=== PATIENT | female | born 1960 | race Caucasian/White ===

== ENCOUNTER 2016-12-29 07:22 | Day surgery (SDC) | payer BC, OTHER ==
[~2016-12-29 07:22] MED LIST: RINGERS SOLUTION,LACTATED 1,000 ML IV PRN
--- OUTSIDE RECORDS SUMMARY | 2016-12-29 07:26 | XMS REPORT | Continuity of Care Document ---
:1960 Author Organization [facility] ([facility]) Address [address] [place] [address] Phone [phone] Care Team Providers Name Role Phone [phone], Need To Check Primary Care Provider Unavailable Source Comments This disclosure is being made pursuant to the Care Everywhere program, applicable federal and state laws, and may not contain all informaitonavailable regarding this patient.[facility] ([facility]) Active Allergies and Adverse Reactions Not on File Current Medications Prescription Sig. Disp. Refills Start Date End Date Status LANSOPRAZOLE (PREVACID PO) Take by mouth. Active PNV Take by mouth. Active NO18/IRON,CARB/FA/UBI/DHA (PREQUE 10 PO) Active Problems Not on file Social History Tobacco Use Types Packs/Day Years Used Date Never Assessed Last Filed Vital Signs Vital Sign Reading Time Taken Blood Pressure 156/95 04/28/2010 12:00 PM CDT Pulse 86 04/28/2010 12:00 PM CDT Temperature 36.5 C (97.7 F) 04/28/2010 12:00 PM CDT Respiratory Rate - - Height 1.51 m (4' 11.45") 04/28/2010 12:00 PM CDT Weight 72.9 kg (160 lb 11.5 oz) 04/28/2010 12:00 PM CDT Body Mass Index 31.97 04/28/2010 12:00 PM CDT Oxygen Saturation - - Plan of Care Health Maintenance Due Date Last Done Comments HCV Screening 1960 Hepatitis B Vaccine (1 of 3 - Primary Series) 1960 Tdap Vaccine 1969 Lipid Disorder Screening 1976 MMR Vaccine 1976 Td Vaccine 1976 Pneumococcal Vaccine (1 of 3 - PCV13) 1977 Cervical Cancer Screening 1988 Mammogram 1998 Colonoscopy 04/10/2008 Influenza Vaccine: Seasonal (#1) 03/29/2016 Results from Last 3 Months Not on file
[2016-12-29] MEDS ORDERED: RINGERS SOLUTION,LACTATED 1,000 ML IV ONE (08:00)
[2016-12-29] MEDS ORDERED: PANTOPRAZOLE SODIUM 40 MG in NORMAL SALINE 100 ML IV ONE (09:08)
[2016-12-29] MEDS ORDERED: RINGERS SOLUTION,LACTATED 1,000 ML IV PRN (09:08)
[2016-12-29] MEDS ORDERED: PANTOPRAZOLE SODIUM 40 MG/100 ML PIGGYBACK IV ONE (09:43)
[2016-12-29 10:08] VITALS: BP 117/73
--- NOTE | 2016-12-29 13:53 | OR ---
Operative Report - Dictated Report Narrative: Operative Report Date of operation: 12/29/2016 Preoperative diagnosis: Anemia. GERD symptoms despite medication. History of colon polyps Postoperative diagnosis: Esophagitis. Hiatal hernia. Gastritis. Duodenitis ( pathology and CLOtest pending). Normal colonoscopy Operation: EGD with biopsies. Colonoscopy Surgeon: Dr Camarillo Anesthesia: KRISTA AUSTIN CRNA Indications for procedure: The patient is a 56-year-old female referred by Roland LANDEROS. The patient has anemia. The patient has GERD symptoms despite medication with history of esophagitis on EGD in 2010. She had a tubulovillous adenoma on colonoscopy in 2000 and a tubular adenoma on repeat exam in 2010. Findings: LA Grade B distal esophagitis. Hiatal hernia. Gastropathy. Duodenitis (pathology and CLOtest pending). Normal colonoscopy to the cecum Narrative of procedure: The patient was identified preoperatively, and prior to the administration of anesthetic a multidisciplinary timeout was observed EGD: With the patient in the recumbent position, a bite-block was placed, intravenous sedation was administered, and the patient's eyes covered with a towel. The flexible fiberoptic gastroscope was advanced into the posterior pharynx which appeared normal. The supraglottic larynx appeared normal. The cords appeared normal, moved well, and opposed in the midline. The scope was advanced under direct vision into the proximal esophagus which appeared normal. The esophagus appeared freely distensible with normal mucosa. The esophageal mucosa appeared normal down to the distal one third where linear esophageal erosions were noted. The GE junction appeared normally distensible. There was a moderate sliding hiatal hernia. The scope was advanced into the stomach proper which was insufflated with air. There was greer gastric erythema with friability and flecks of coffee ground material although no jose de jesus ulcerations or neoplastic lesions were appreciated. A retroflexed view of the gastric fundus clearly demonstrated a large hiatal hernia. The scope was redirected toward the pylorus. The pylorus appeared patent. The scope was advanced into the duodenal bulb which appeared erythematous and friable with no jose de jesus ulcers were apparent. The scope was advanced further to the horizontal portion of the duodenum which appeared normal, specifically the villous architecture appeared well preserved and clear bile was present. The scope was slowly withdrawn through the duodenal bulb with confirmation that no active ulcer was present. A inside account representative duodenal biopsy was obtained and submitted for pathology. The biopsy site was seen to be hemostatic. The scope was withdrawn into the stomach and inside account representative biopsies of gastric mucosa obtained for CLOtest and pathology. The biopsy sites were seen to be hemostatic. The insufflated air was removed from the stomach, the scope withdrawn to just above the GE junction and esophageal biopsies were obtained. The sites were seen to be hemostatic. The scope was withdrawn from the patient, and this portion of the procedure terminated. COLONOSCOPY: The patient was then placed in the left lateral position, and the perineum was inspected. There was no evidence of pilonidal disease or skin breakdown. The external appearance of the anus was normal. Sphincter tone was good. The flexible fiberoptic colonoscope was inserted into the rectum which was insufflated with air. The rectal mucosa and submucosal vascular pattern appeared normal, the prep was seen to be complete. The scope was advanced through the sigmoid colon, up the descending colon, and around the splenic flexure where the triangular haustral architecture of the transverse colon was seen. The scope was advanced across the transverse colon, around the hepatic flexure to the cecum, where the confluence of tenia and the ileocecal valve were identified. The mucosa at this level appeared normal. The scope was then slowly withdrawn in a circular fashion so that all aspects of colonic mucosa were inspected. The colon was relatively normal in course and caliber. The haustral architecture appeared well preserved throughout with no evidence of external compression. The mucosa and submucosal vascular pattern appeared normal, specifically there was no gross evidence to suggest colitis or inflammatory bowel disease and no AV malformations were seen. No jose de jesus diverticulosis was demonstrated. No polyps were encountered. The scope was gradually withdrawn to the level of the rectum. As much insufflated air as possible was removed. The scope was withdrawn from the patient and the procedure terminated. The patient tolerated the anesthetic and procedure well without complication and was transferred back to the ambulatory surgery area awake and in stable condition. The patient remained stable throughout a period of postoperative observation. She denied abdominal discomfort, was able to tolerate by mouth intake, and was up without assistance. I shared the operative findings with the patient and she was given copies of the photographs which appear in the medical record. She was discharged home with instructions not to engage in hazardous activity today , but may resume normal activity tomorrow, and advance diet as tolerated. She is to continue those medications as listed in the history and physical exam. I made arrangements to contact her with the biopsy reports and will make additional recommendations for treatment and follow-up based upon those results. Reviewed and electronically signed
== END 2016-12-29 07:23 | disposition home or self-care (01) ==
LOC: AMB 07:22
PROVIDERS: ATTEND Surgery
PROC: 0DB48ZX Excision of Esophagogastric Junction, Via Natural or Artificial Opening Endoscopic, Diagnostic (ICD-10-PCS; 2016-12-29)
PROC: 0DJD8ZZ Inspection of Lower Intestinal Tract, Via Natural or Artificial Opening Endoscopic (ICD-10-PCS; 2016-12-29)
PROC: 0DB98ZX Excision of Duodenum, Via Natural or Artificial Opening Endoscopic, Diagnostic (ICD-10-PCS; principal; 2016-12-29 08:20)
PROC: 0DB68ZX Excision of Stomach, Via Natural or Artificial Opening Endoscopic, Diagnostic (ICD-10-PCS; 2016-12-29 08:20)
DX: Z12.11 Encounter for screening for malignant neoplasm of colon (principal); K21.0 Gastro-esophageal reflux disease with esophagitis; K44.9 Diaphragmatic hernia without obstruction or gangrene; K29.80 Duodenitis without bleeding; K29.70 Gastritis, unspecified, without bleeding; I10 Essential (primary) hypertension; E03.9 Hypothyroidism, unspecified; D64.9 Anemia, unspecified; F32.9 Major depressive disorder, single episode, unspecified; E66.9 Obesity, unspecified; Z68.34 Body mass index [BMI] 34.0-34.9, adult; Z86.010 Personal history of colon polyps

== ENCOUNTER 2020-08-14 08:00 | Inpatient (IN) ==
[~2020-08-14 08:00] MED LIST changes: +MORPHINE SULFATE 15 MG TABLET.SA PO PRN; -RINGERS SOLUTION,LACTATED 1,000 ML IV PRN; +ROPIVACAINE HCL/PF 100 MG, EPINEPHrine 0.2 MG, KETOROLAC TROMETHAMINE 30 MG in NORMAL S... IJ PRN; +TRANEXAMIC ACID 1,000 MG in NORMAL SALINE 100 ML IV PRN; +ceFAZolin SODIUM 1 GM VIAL IV PRN
--- NOTE | 2020-08-14 09:04 | ANES ---
Anesthesia Pre Procedure Eval Vitals/Labs: Last Vital Signs Temp 37.2 C 08/14/20 08:24 Pulse 79 08/14/20 08:24 Resp 18 08/14/20 08:24 BP 133/91 H 08/14/20 08:24 Pulse Ox 95 08/14/20 08:24 HOME MEDICATIONS fluticasone propionate 50 mcg/actuation nasal spray,suspension 2 spray INTRANASAL DAILY #9.9 g 09/14/19 [Last Taken Unknown] celecoxib 200 mg capsule 200 mg PO DAILY #90 cap 01/01/20 [Last Taken Unknown] furosemide 40 mg tablet 40 mg PO .COMPLEX PRN #30 tab 02/27/20 [Last Taken Unknown] levothyroxine 50 mcg tablet 50 mcg PO DAILY #90 tab 03/19/20 [Last Taken Unknown] omeprazole 40 mg capsule,delayed release 40 mg PO DAILY #90 cap 03/19/20 [Last Taken Unknown] venlafaxine 75 mg capsule,extended release 24 hr 75 mg PO DAILY #90 cap 03/19/20 [Last Taken Unknown] meloxicam 15 mg tablet 15 mg PO DAILY PRN tab 05/13/20 [Last Taken Unknown] losartan 50 mg tablet 50 mg PO BID #180 tab 07/10/20 [Last Taken 08/14/20 06:00] tramadol 50 mg tablet 50 mg PO Q6H PRN #60 tab 07/16/20 [Last Taken Unknown] ibuprofen 800 mg tablet 800 mg PO Q6H PRN #120 tab MDD 4 07/29/20 [Last Taken Unknown] Zinc 50 mg PO DAILY 08/14/20 [Last Taken Unknown] Allergies/Adverse Reactions: Allergies Allergy/AdvReac Type Severity Reaction Status Date / Time propoxyphene napsylate Allergy Mild Vomiting Verified 08/14/20 08:28 [From Osmar] - Planned Procedure Planned Procedure: LT Arthroplasty Total Knee Medication List Reviewed:: Yes Allergies Verified: Yes Medical History (Last Reviewed 08/14/20 @ 08:52 by Paul Gabriel CRNA) Acquired hammer toe Onset Date: 07/13/12 Anemia Onset Date: Unknown Degenerative joint disease of knee Onset Date: 07/14/12 Depression Onset Date: Unknown Essential hypertension Onset Date: 10/12/17 GERD (gastroesophageal reflux disease) Onset Date: Unknown Hernia, hiatal Onset Date: 2000 Hip pain, bilateral Onset Date: Unknown Hypertension Onset Date: Unknown Hypothyroidism Onset Date: Unknown Medial meniscus tear Onset Date: [address] Hess Obesity Onset Date: Unknown Osteoarthritis Onset Date: Unknown Osteopenia Onset Date: Unknown Primary localized osteoarthritis Onset Date: 10/13/12 shoulder region Rotator cuff tear Onset Date: 2009 Right shoulder repaired then reruptured Rotator cuff tear arthropathy of right shoulder Onset Date: 07/14/12 chronic Shoulder pain Onset Date: Unknown Thumb pain Onset Date: Unknown Wrist fracture, left Onset Date: 07/27/19 Surgical History (Last Reviewed 08/14/20 @ 08:52 by Paul Gabriel CRNA) Cholecystectomy planned Onset Date: Unknown Delashmutt-open [id number] Hammertoe Onset Date: 07/11/12 surgery- Dr Rahman-Rt foot History of carpal tunnel release Onset Date: 1999 Dr. Ramírez-bilateral History of colonoscopy Onset Date: 12/29/16 Bagan-normal. History of colonoscopy Onset Date: 06/14/11 with biopsy- ' Yaz-tubulovillous adenoma.' John Paul-tubular adenoma. 01/06/01, 06/14/11 History of esophagogastroduodenoscopy (EGD) Onset Date: 12/29/16 ' Peasley-hiatal hernia, mod esophagitis, positive H.pylor. ' John Paul- mild chronic inflammation. '[id number]-aysyawle neg. chem. gastritis,chronic ulcer 12/16/00, 06/14/11,12/29/16 History of knee replacement Onset Date: 01/2015 right- Deshawn History of nasal septoplasty Onset Date: 12/25/09 Lakshmi History of repair of rotator cuff Onset Date: 02/05/10 Dr Wood-right shoulder History of total right hip replacement Onset Date: 09/2018 Dr. Hess History of tubal ligation Onset Date: 1991 History of total right knee replacement Onset Date: 08/14/18 Dr. Hess revision Family History (Last Reviewed 08/14/20 @ 08:52 by Paul Gabriel CRNA) Mother , age 79-COPD, CAD, hyperlipidemia, osteoarthritis. COPD (chronic obstructive pulmonary disease) Hyperlipemia CAD (coronary artery disease) Osteoarthritis Father , age 59, malignant lymphoma. DM, HTN Diabetes Hypertension Cancer malignant lymphoma Brother Diabetes - Family Anesthesia History Family History:: no untoward family reactions to anesthesia, no familial bleeding tendencies, no family history of clotting disorders, no family history of premature - Airway/Neck/Teeth Denture Type: Full upper Neck Exam: full range of motion Mallampatti Score: 1 Thyromental (T-M) distance: > 6 cm Mandibulo Hyoid distance: > 3 cm - Respiratory Respiratory Physical: lungs clear Smoking Status: Never smoker Sleep Apnea currently treated: No Sleep Apnea by current assessment: No - Cardiovascular Cardiac History: other - furosomide for hand swelling Tolerate Activity: Fair Heart Sounds: S1 & S2, Regular - Gastrointestinal NPO since: 2400 - Anesthesia Assessment and Plan ASA Class: PS, II Anesthesia Type Plan: Block - Adductor canal block for post op pain relief, Spinal
[2020-08-14] MEDS ORDERED: MIDAZOLAM HCL/PF 5 MG/ML VIAL ONE (09:06)
[2020-08-14] MEDS ORDERED: PROPOFOL VIAL IV ONE (09:06)
[2020-08-14] MEDS ORDERED: BUPIVACAINE HCL/EPINEPHRINE 50 ML VIAL ONE (09:06)
[2020-08-14] MEDS ORDERED: ONDANSETRON HCL/PF 2 MG/ML VIAL ONE (09:06)
[2020-08-14] MEDS: RINGER'S SOLUTION,LACTATED 1,000 ML IV PRN ×3 (09:18→11:41)
[2020-08-14] MEDS ORDERED: MAGNESIUM HYDROXIDE 30 ML UDC PO PRN (11:35)
[2020-08-14] MEDS ORDERED: DEXTROSE 5%-LACTATED RINGERS 1,000 ML IV PRN (11:35)
[2020-08-14] MEDS ORDERED: ACETAMINOPHEN 500 MG TABLET PO PRN (11:35)
[2020-08-14] MEDS ORDERED: MAG HYDROX/ALUMINUM HYD/SIMETH 30 ML UDC PO PRN (11:35)
[2020-08-14] MEDS ORDERED: diphenhydrAMINE HCL 50 MG/ML VIAL IV PRN (11:35)
[2020-08-14] MEDS ORDERED: MORPHINE SULFATE 2 MG/ML DISP.SYRIN IV PRN (11:35)
[2020-08-14] MEDS ORDERED: ZOLPIDEM TARTRATE 5 MG TABLET PO PRN (11:35)
--- NOTE | 2020-08-14 11:35 | OR ---
Operative Report - Dictated Report Narrative: Date: 08/14/2020 Preoperative diagnosis: Left knee degenerative joint disease. Postoperative diagnosis: Left knee degenerative joint disease. Procedure: Left total knee arthroplasty. Surgeon: Linden Irwin M.D. Leader Writer: Ghassan Trevino PA-C (provided and essential set of skilled, educated hands that assisted with transfer, positioning, prepping, draping, manipulation, retraction, placement of jigs, injection, insertion of implants, irrigation, closure wounds, and dressings all of which could not be performed by the available surgical crew) Anesthesia: Spinal with regional block and local periarticular joint injection. Complications: None Specimens: Bone. Estimated blood loss: Minimal. Tourniquet time: 90 Minutes at 325 millimeters of mercury. Retained implants: Depuy Attune size 4 narrow left lugged cemented posterior stabilized femoral component. Size 3 fixed-bearing cemented tibial platform. 4 by 8 millimeter posterior stabilized cross-linked tibial insert. 35 millimeter medialized patella button. Indications: Mrs. Chen is a 60-year-old female who has had longstanding left knee pain and arthrosis. This patient was followed in my clinic for period of time with significant complaints of left knee pain consistent with arthritic changes. She had failed conservative measures including, but not limited to, activity modification, passage of time, medications, and other conservative measures. Patient wished to proceed with surgical treatment. The risks, benefits, and alternatives were discussed in clinic. The risks of , blood clots, bleeding, infection, nerve/tendon blood vessel/ injury, malposition of components, intraoperative fracture, postoperative limited range of motion, persistent pain, failure of components, and need for additional procedures. Patient wished to proceed consent was obtained after answering all questions. Procedure: After marking the correct extremity on the floor, the patient was taken to the operating room. A timeout was performed. IV antibiotics consisting of Ancef were administered prior to the procedure. A regional followed by spinal anesthetic was induced by anesthesia, per my request, on the operative table with all bony prominences well-padded. Gilmore catheter was placed, and a bump was placed under the operative side buttock. SCDs and YEIMY hose were utilized on the nonoperative leg. A well-padded tourniquet was applied to the operative thigh. The operative leg was then pre-scrubbed with alcohol, prepped, and draped in a standard sterile fashion. After exsanguinating the extremity with an Esmarch bandage, the tourniquet was inflated. After marking out the anterior knee for standard incision centered over the patella, the skin was incised and dissected down to the joint retinaculum. The joint retinaculum was marked out as well as the horizontal axis of the patella, and a standard medial parapatellar arthrotomy was then made. The most proximal aspect of the quadriceps tendon and the patella tendon insertion were protected from release. A partial synovectomy was performed as well as a resection of the infrapatellar fat pad. The distal femoral fat pad proximal to the trochlea was also resected using cautery. The soft tissues were elevated off the medial aspect of the proximal tibia using a Tamez elevator ensuring that we did not transect the medial collateral ligament. Upon initial evaluation range of motion was approximately 0 degrees to 130 degrees of flexion. There were signs of advanced arthrosis in the medial, patellofemoral greater than lateral joint spaces. There were large marginal osteophytes which were removed with a rongeur. The knee was hyperflexed and the patella was tucked laterally. Protecting the surrounding soft tissues with Homans, an entry drill was placed down the femoral canal using Whitesides line for guidance into the entry point. The intramedullary femoral alignment paige was utilized in order to cut the distal femur in 5 degrees of valgus resecting 10 millimeters of bone. Next the distal femur was sized to a size 4. A posterior referencing guide was utilized to place the distal femoral cutting block in 3 degrees of external rotation. This was pinned into place. The rotation was confirmed both visually and based on anatomic landmarks. The 4 in 1 cutting jig of the appropriate size was utilized in order to make all bony cuts. The andrzej wing was used to ensure no notching. Retractors were utilized in order to protect surrounding soft tissues. This cut did not result in any excessive notching. We then cut the box centered over the distal femur. This allowed for resection of the anterior and posterior cruciate ligaments. I then turned my attention to the preparation of the tibia. Using an extra medullary tibial alignment paige, 3 millimeters of bone was resected off the medial articular surface. This was made perpendicular to the mechanical axis of the joint with the alignment paige centered over the ankle mortise. The alignment paige was checked and was noted to be parallel to the mec hanical axis, centered over the medial one third of the tibial tubercle, paralleling the anterior surface of the tibia. We then turned our attention to the remaining meniscus and soft tissues. These were removed while protecting the surrounding ligaments and soft tissues. The marginal osteophytes off the anterior, posterior, medial, lateral aspects of the femur and tibia were removed. The tibia was sized out to a size 3. Next the tibia was drilled and punched in an externally rotated position. Next the trial femur and a series of tibial inserts were utilized in order to allow for full extension and maximal flexion. It was found that a 8 millimeter insert gave the best range of motion and stability at multiple flexion points as well as at full extension there was less than 2 mm of gapping both medially and laterally. There is minimal anterior translation with the knee at 90 degrees of flexion and no signs of being able to dislocate the knee. The patella was then prepared. The initial thickness was 18 millimeters. This was reamed down to 11 millimeters parallel to the anterior surface of the patella. It was sized out to a size 35 medialized patella button. This was then drilled and trialed. Without any medial restraint the patella tracked appropriately and did not sublux or dislocate. At this point, it was felt these were the appropriate sized implants, and all trials were removed. The standard periarticular joint injection consisting of ropivacaine, Toradol, and epinephrine were injected into the periarticular joint tissues. The bony surfaces were thoroughly irrigated with a pulsatile-suction saline irrigation device. A bone plug from the prior resected anterior chamfer cut was placed into the drill hole at the distal femur. The bony surfaces were then dried in preparation for placement of the implants. The cement was vacuum mixed per the roll contour grinder's instructions. The cement was placed on the dry bony surfaces and posterior aspect of the implants. The implants were impacted into place, removing all extruded cement. At this point anesthesia administered tranexamic acid per protocol intravenously. The knee was placed in extension with axial loading with the trial insert while the cement cured. Once the cement cured, all remaining extruded cement was removed. The knee was placed through a range of motion with the trial insert to ensure appropriate range of motion and stability. Final range of motion was approximately 0 to 130 degrees. The knee was again thoroughly irrigated with pulsatile saline lavage. The final polyethylene insert was then impacted into place ensuring no retained soft tissues. The remaining periarticular joint injection was injected. A medium Hemovac drain was placed exiting superior laterally. The knee was then placed over a triangle and the arthrotomy was closed with interrupted #1 Vicryl after thoroughly irrigating the joint. The deep and subcutaneous tissues were closed with interrupted 0 and 3-0 Vicryl respectively. Skin was closed with a running subcutaneous 3-0 Monocryl and Prineo Dermabond dressing. 4 x 4's, Sof-Rol, and a full leg Thaddeus wrap were applied. All sponge, needle, blade, and instrument counts were correct prior to closing the wounds. Postoperative condition: The patient was awoken and transferred to the postanesthesia care unit in stable condition. Plan is to be admitted to the inpatient medical/surgical floor postoperatively for 24 hours of IV antibiotics, physical therapy, occupational therapy, and medical comanagement. Patient will be weightbearing as tolerated with range of motion as tolerated. DVT prophylaxis will be with SCDs, YEIMY hose, and pharmacological anticoagulation. Anticipated hospital stay is approximately 1-3 days.
[2020-08-14] MEDS ORDERED: FUROSEMIDE 40 MG TABLET PO PRN (11:38)
--- NOTE | 2020-08-14 11:56 | ANES ---
Anesthesia Procedure Note Procedure Note: ANESTHESIA PROCEDURE NOTE Date of Procedure: 08/14/2020 Time of procedure: 9:35 AM. Performed by: TIGRE Dyson CRNA, MSN Paver Layer: Nasima Mathis RN. Preprocedure diagnosis: Post left knee arthroplasty pain. Post procedure diagnosis: Same. Procedure: Left adductor Canal Block. Indications: Post left total knee arthroplasty pain relief. Findings: See below. Details of the procedure: The patient was brought to OR #4 and placed in supine position. The patient's left femoral area to the knee was prepped with chlorhexidine and using ultrasound guidance the left femoral artery and nerve was identified and then followed to the level of the adductor canal. Lidocaine 1% was infiltrated to the skin of the intended injection site. Under ultrasound guidance the saphenous nerve was approached with visualization of a 4 inch shielded block needle. Once saphenous nerve was identified with proximity to the needle tip, the saphenous nerve was surrounded with 30 mL bupivacaine 0.5% with 1-200,000 epinephrine. Please see radiology/ultrasound report for details and retained images of the procedure. EBL: 0 Fluids: N/A. Specimen: N/A. Post procedure condition: The patient tolerated the procedure well. No complications were noted. Thank you for this consultation. Paul Gabriel CRNA, ARNP, MSN
--- NOTE | 2020-08-14 11:57 | ANES ---
Post Anesthesia Discharge - Transfer of Care Transfer of Care handoff given to nurse: Yes - Discharge from PACU Discharge from PACU when meets criteria: Yes - Alert and comfortable.
[2020-08-14] MEDS: KETOROLAC TROMETHAMINE 15 MG/ML VIAL IV SCH ×2 (12:51→20:47)
[2020-08-14] MEDS: ceFAZolin SODIUM 1 GM in DEXTROSE 5 % IN WATER 100 ML IV SCH ×4 (12:51→20:48)
[2020-08-14] MEDS: oxyCODONE HCL/ACETAMINOPHEN 1 TAB TABLET PO PRN (20:48)
[2020-08-14] MEDS: MORPHINE SULFATE 15 MG TABLET.SA PO SCH (20:49)
[2020-08-14] MEDS: LOSARTAN POTASSIUM 50 MG TABLET PO SCH (20:49)
[2020-08-14] MEDS ORDERED: SENNOSIDES/DOCUSATE SODIUM 1 TAB TABLET PO SCH (21:00)
[2020-08-15] MEDS: KETOROLAC TROMETHAMINE 15 MG/ML VIAL IV SCH ×3 (01:01→12:17)
[2020-08-15] MEDS: ceFAZolin SODIUM 1 GM in DEXTROSE 5 % IN WATER 100 ML IV SCH ×2 (01:02)
[2020-08-15] MEDS: oxyCODONE HCL/ACETAMINOPHEN 1 TAB TABLET PO PRN (04:58)
[2020-08-15 06:03] LABS: Hematocrit 28.5 % (37.0-47.0); Hemoglobin 8.5 gm/dL (12.5-16.0); Mean Cell Volume 88.8 fl (78-100); Mean Corpuscular Hemoglobin 26.5 pg (27-31); Mean Corpuscular Hgb Conc 29.8 g/dl (32-36); Mean Platelet Volume 9.2 fl (8-12.5); Platelet Count 243 K/mm3 (150-450); Red Blood Count 3.21 M/mm3 (4.2-5.4); Red Cell Distribution Width 15.1 % (11.5-14.0); White Blood Count 18.9 K/mm3 (4.0-10.5)
[2020-08-15 06:15] LABS: Anion Gap 5.8 mmol/L (6.8-13.8); BUN/Creatinine Ratio 23.4 (9.0-21.6); Calcium * 7.8 mg/dL (7.9-10.9); Carbon Dioxide 29.5 mmol/L (24-32.6); Potassium 3.3 mmol/L (3.4-4.6)
[2020-08-15] MEDS: ONDANSETRON HCL/PF 2 MG/ML VIAL IV PRN ×2 (06:49→10:58)
[2020-08-15] MEDS ORDERED: PANTOPRAZOLE SODIUM 40 MG TABLET.EC PO SCH (07:00)
[2020-08-15] MEDS ORDERED: LEVOTHYROXINE SODIUM 50 MCG TABLET PO SCH (07:00)
--- NOTE | 2020-08-15 07:31 | ANES ---
Post Anesthesia Assessment - Vital Signs Vitals: Last Vital Signs Temp 36.5 C 08/15/20 07:12 Pulse 104 H 08/15/20 07:12 Resp 16 08/15/20 07:12 BP 98/64 08/15/20 07:12 Pulse Ox 87 L 08/15/20 07:12 Airway Patency: Normal - Mental Status Level Of Consciousness: Awake, Alert, Appropriate - Pain Level Pain Score: 5 - N/V Assessment Nausea/Vomiting Presence: None Dehydration:: No
[2020-08-15] MEDS: LOSARTAN POTASSIUM 50 MG TABLET PO SCH (08:53)
[2020-08-15] MEDS: MORPHINE SULFATE 15 MG TABLET.SA PO SCH (08:56)
[2020-08-15] MEDS ORDERED: FLUTICASONE PROPIONATE 120 SPRAY INHALER NS SCH (09:00)
[2020-08-15] MEDS ORDERED: VENLAFAXINE HCL 37.5 MG CAP.SR.24H PO SCH (09:00)
[2020-08-15] MEDS ORDERED: ZINC SULFATE 220 MG CAPSULE PO SCH (09:00)
[2020-08-15] MEDS ORDERED: ENOXAPARIN SODIUM 40 MG/0.4 ML SYRG SC SCH (10:36)
[2020-08-15] MEDS ORDERED: POTASSIUM CHLORIDE 20 MEQ TABLET.SA PO ONE (13:54)
--- NOTE | 2020-08-15 14:05 | DS ---
(1) Status post total left knee replacement Problem: Acute (2) Hypokalemia Problem: Acute (3) Nausea & vomiting Problem: Acute Qualifiers: Vomiting type: unspecified Date of Discharge:: 08/15/20 Hospital Course: 60-year-old female postop day 1 status post left total knee arthroplasty. Patient was admitted to the hospital status post TKA for continued monitoring, postoperative complications, physical therapy. She overall is had a uncomplicated stay. She does have mild hypokalemia, this was treated with p.o. potassium. Patient also has had mild vomiting this been treated with p.o. Zofran. Patient is otherwise met all physical therapy goals. She notes she is doing well. She has mild increased pain with weightbearing, better with rest. She otherwise notes that she has no acute concerns. Exam today reveals left lower extremity bandages in place clean/dry/intact, distal capillary refill brisk, 5/5 plantar flexion/dorsiflexion, diffuse mild tenderness about left kn ee. Patient otherwise continue with the following recommendations: -PT/OT progress per protocol -Weightbearing as tolerated, assistive device as needed -P.o. diet as tolerated, Zofran as needed -P.o. pain medication as needed -DVT prophylaxis Lovenox for 7 days followed by 325 mg aspirin daily for 6 weeks -Maintain pernio dressing in place, call clinic with acute changes or significant drainage -Disposition discharge home with outpatient physical therapy, follow-up outpatient with orthopedic outpatient clinic Procedures Performed: see notes below List Procedures: Left total knee arthroplasty Results and Findings: Lab Pending Results 08/15/20 05:50: WBC 18.9 H, RBC 3.21 L, Hgb 8.5 L, Hct 28.5 L, MCV 88.8, MCH 26.5 L, MCHC 29.8 L, RDW 15.1 H, Plt Count 243, MPV 9.2 08/15/20 05:50: Sodium 133, Plasma Sodium 133, Potassium 3.3 L, Chloride 101, Carbon Dioxide 29.5, Anion Gap 5.8 L, BUN 15, Creatinine 0.64, Est GFR (Non-Af Amer) 100, BUN/Creatinine Ratio 23.4 H, Random Glucose 107, Calcium 7.8 L Discharge Location: Home Disposition: Home self-care Condition: Stable Discharge Activity: Activity as tolerated, Weight bearing - Assistive device as needed Discharge Diet: General/regular food Referrals: Edilma Reinoso FNP [Primary Care Provider] - Problem Oriented Discharge Instructions to Patient/Family: Total Knee Replacement, Care After, [id number] Print Language (Ivorian or Telugu Available): Ivorian Additional Patient Instructions (free text): Physical Therapy at [facility] outpatient therapy department on TuesdayAugust 18 at 8:45am. Follow up [facility] Orthopedic office appointment Prescriptions (Any new or edited meds): Enoxaparin Sodium [Lovenox] 40 mg SC Q24H #6 disp.syrin Transmission Status: Pending to [facility] oxyCODONE HCL/ACETAMINOPHEN [Percocet 5 MG/325 MG] 2 tab PO Q4H PRN #52 tab PRN Reason: Moderate Pain (Pain Scale 4-6) Transmission Status: Received by [facility] Sennosides/Docusate Sodium [Senokot-S] 2 tab PO HS #60 tab Transmission Status: Pending to [facility] Ondansetron HCl [Zofran] 4 mg PO QID #60 tab Transmission Status: Pending to [facility] Complete Home Medications List: Complete Home Medication List: fluticasone propionate 50 mcg/actuation nasal spray,suspension 2 spray INTRANASAL DAILY #9.9 g 09/14/19 celecoxib 200 mg capsule 200 mg PO DAILY #90 cap 01/01/20 furosemide 40 mg tablet 40 mg PO .COMPLEX PRN #30 tab 02/27/20 levothyroxine 50 mcg tablet 50 mcg PO DAILY #90 tab 03/19/20 omeprazole 40 mg capsule,delayed release 40 mg PO DAILY #90 cap 03/19/20 venlafaxine 75 mg capsule,extended release 24 hr 75 mg PO DAILY #90 cap 03/19/20 meloxicam 15 mg tablet 15 mg PO DAILY PRN tab 05/13/20 losartan 50 mg tablet 50 mg PO BID #180 tab 07/10/20 tramadol 50 mg tablet 50 mg PO Q6H PRN #60 tab 07/16/20 ibuprofen 800 mg tablet 800 mg PO Q6H PRN #120 tab MDD 4 07/29/20 Zinc 50 mg PO DAILY 08/14/20 Enoxaparin Sodium [Lovenox] 40 mg SC Q24H #6 disp.syrin 08/15/20 Ondansetron HCl [Zofran] 4 mg PO QID #60 tab 08/15/20 Sennosides/Docusate Sodium [Senokot-S] 2 tab PO HS #60 tab 08/15/20 oxyCODONE HCL/ACETAMINOPHEN [Percocet 5 MG/325 MG] 2 tab PO Q4H PRN #52 tab 08/15/20 Amb Orders for Discharge: PT Evaluation and Treatment* Location: None Selected
[2020-08-15] MEDS ORDERED: POTASSIUM CHLORIDE 20 MEQ TABLET.SA ONE (15:11)
[2020-08-15 15:24] VITALS: BP 104/61
== END 2020-08-15 15:24 | disposition home or self-care (01) | DRG 470 ==
LOC: MS 08:05 → EDSTATUS 11:15
PROVIDERS: ADMIT Orthopaedic Surgery; ATTEND Orthopaedic Surgery
DX: E03.9 Hypothyroidism, unspecified; M17.12 Unilateral primary osteoarthritis, left knee; I10 Essential (primary) hypertension; R11.2 Nausea with vomiting, unspecified; E87.6 Hypokalemia